=== PATIENT | male | born 1935 | race Caucasian/White ===

== ENCOUNTER 2016-10-23 07:48 | Observation (INO) | payer OTHER, BC ==
[~2016-10-23] VITALS: Ht 157.5 cm; Wt 56.0 kg
[2016-10-23] VITALS (8 sets, daily range): BP systolic 104–146; BP diastolic 54–65
[2016-10-23] MEDS ORDERED: METOPROLOL SUC100 MG PO (08:09)
[2016-10-23] MEDS ORDERED: TAMSULOSIN HCL0.4 MG PO (08:09)
[2016-10-23] MEDS ORDERED: METHYLPHENIDATE5 MG PO (08:09)
[2016-10-23] MEDS ORDERED: CREON DR 12,001 EAC1 PO (08:10)
[2016-10-23 09:38] LABS: HEMATOCRIT 40.5 % (38.0-50.0); MCH 28.6 PG (29.0-34.0); MCHC 32.6 G/DL (30.0-36.0); MCV 87.9 FL (86-99); MEAN PLAT.VOLUME 12.8 uM^3 (9.0-12.4); PLATELET COUNT 116 K/uL (156-360); RBC DIS.WIDTH-SD 48.2 % (39-53); RED BLOOD COUNT 4.61 M/uL (4.00-5.50); WHITE BLOOD COUNT 6.3 K/uL (4.1-10.2)
[2016-10-23 09:46] LABS: CHLORIDE 106 mEq/L (99-109); POTASSIUM 4.7 mEq/L (3.7-5.4); SODIUM 141 mEq/L (136-147)
[2016-10-23 09:48] LABS: GLUCOSE 136 mg/dL (70-99)
[2016-10-23 09:49] LABS: ANION GAP 10 MEQ/L (2-14)
[2016-10-23 09:52] LABS: GFR ESTIMATE (CALCULATED) 57 mL/min/
[2016-10-23 09:53] LABS: UREA NITROGEN (BUN) 30 mg/dL (9-23)
[2016-10-23 10:02] LABS: TROP-I INTERPRETATION NEGATIVE; TROPONIN-I < 0.01 ng/mL (0.0-0.30)
[2016-10-23] MEDS ORDERED: PATADAY2.5 ML BOTH EYES (10:30)
[2016-10-23] MEDS ORDERED: ADVIL200 MG PO (10:30)
[2016-10-23] MEDS ORDERED: CENTRUM SILVER1 EAC3 PO (10:31)
[2016-10-23 11:42] LABS: INFLUENZA A VIRAL ANTIGEN POSITIVE; INFLUENZA B VIRAL ANTIGEN NEGATIVE
[2016-10-23 12:10] LABS: ADD MIUA? YES; BILIRUBIN NEGATIVE; BLOOD SMALL; COLOR YELLOW ((YELLOW)); GLUCOSE (STRIP) NEGATIVE; KETONES NEGATIVE; LEUKOCYTES NEGATIVE; NITRITE NEGATIVE; PROTEIN (STRIP) NEGATIVE; SPECIFIC GRAVITY 1.017 (1.000-1.030); UROBILINOGEN 0.2 MG/DL (0.2-1.0)
[2016-10-23 13:04] LABS: BACTERIA NONE SEEN /HPF; EPITHELIAL CELLS RARE /HPF; MUCUS TRACE /LPF; RED BLOOD CELLS 15-20 /HPF (0-5); UCUL ADDED? NO
[2016-10-23 13:45] LABS: POINT-OF-CARE METER ID UU14162513
[2016-10-23 14:34] LABS: C DIFF TOXIN ND (NEGATIVE)
[2016-10-23 18:17] LABS: C DIFF TOXIN ND (NEGATIVE)
[2016-10-23 18:27] LABS: POINT-OF-CARE METER ID UU14162513
[2016-10-23 19:08] LABS: HEMATOCRIT 35.6 % (38.0-50.0); MCV 89.4 FL (86-99)
[2016-10-23 22:18] LABS: POINT-OF-CARE METER ID UU14162513
[2016-10-24 00:33] VITALS: BP 98/50
[2016-10-24 07:01] LABS: ANION GAP 7 MEQ/L (2-14); CHLORIDE 105 MEQ/L (99-109); GFR ESTIMATE (CALCULATED) > 59 mL/min/; POTASSIUM 3.9 MEQ/L (3.7-5.4); SAMPLE HEMOLYSIS CHECK 0; SAMPLE ICTERIC CHECK 0; SAMPLE LIPEMIA CHECK 0; SODIUM 138 MEQ/L (136-147); UREA NITROGEN (BUN) 18 mg/dL (9-23)
[2016-10-24 07:08] LABS: GLUCOSE 99 mg/dL (70-99)
[2016-10-24 07:38] LABS: MCH 27.8 PG (29.0-34.0); MCHC 31.1 G/DL (30.0-36.0); MCV 89.6 FL (86-99); MEAN PLAT.VOLUME 13.4 uM^3 (9.0-12.4); PLATELET COUNT 143 K/uL (156-360); RBC DIS.WIDTH-CV 15.1 % (11.8-14.6); RBC DIS.WIDTH-SD 49.6 % (39-53); RED BLOOD COUNT 4.13 M/uL (4.00-5.50); WHITE BLOOD COUNT 5.6 K/uL (4.1-10.2)
[2016-10-24 08:17] LABS: POINT-OF-CARE METER ID UU13113700
[2016-10-24] MEDS ORDERED: OSELTAMIVIR PHO30 MG PO (08:40)
[2016-10-24] MEDS ORDERED: PROTONIX40 MG PO ×2 (08:40→08:51)
== END 2016-10-24 09:56 | disposition home or self-care (01) ==
LOC: EME 07:48 → EDOF 10:03 → 5WEST 10:03 → EDOF 10:03 → 5WEST 11:04
PROVIDERS: Emergency Medicine; Hospitalist
DX: K92.1 Melena (principal); R19.7 Diarrhea, unspecified; R10.13 Epigastric pain; I10 Essential (primary) hypertension; E11.9 Type 2 diabetes mellitus without complications; K21.9 Gastro-esophageal reflux disease without esophagitis; I25.10 Atherosclerotic heart disease of native coronary artery without angina pectoris; I25.2 Old myocardial infarction; F17.200 Nicotine dependence, unspecified, uncomplicated
CPT/HCPCS: 80048; 81003; 82272; 82948; 84484; 85014; 85018; 85027; 86850; 86900; 86901; 87493; 87502; 93005; 99281; 99285; C9113; G0378; J1815; J7030

== ENCOUNTER 2016-11-28 08:59 | Inpatient (IN) | payer OTHER, BC ==
[~2016-11-28] VITALS: Ht 157.5 cm; Wt 59.0 kg
[~2016-11-28 08:59] MED LIST: ADVIL200 MG PO; CENTRUM SILVER1 EAC3 PO; CREON DR 12,001 EAC1 PO; METHYLPHENIDATE5 MG PO; METOPROLOL SUC100 MG PO; OSELTAMIVIR PHO30 MG PO; PATADAY2.5 ML BOTH EYES; PROTONIX40 MG PO; TAMSULOSIN HCL0.4 MG PO
[2016-11-28 09:36] LABS: BASOPHIL COUNT 0.1 K/uL (0-0.1); EOSINOPHIL (%) 0.1 % (0-5); HEMATOCRIT 43.2 % (38.0-50.0); IMMATURE GRANULOCYTE (%) 0.5 % (0.0-0.7); IMMATURE GRANULOCYTE COUNT 0.1 K/uL; LYMPHOCYTE COUNT 2.1 K/uL (1.0-2.8); MCHC 31.7 G/DL (30.0-36.0); MCV 88.3 FL (86-99); MEAN PLAT.VOLUME 13.2 uM^3 (9.0-12.4); MONOCYTE (%) 4.6 % (3-12); MONOCYTE COUNT 0.7 K/uL (0-0.8); NEUTROPHIL (%) 80.6 % (45-76); PLATELET COUNT 202 K/uL (156-360); RBC DIS.WIDTH-CV 13.8 % (11.8-14.6); RBC DIS.WIDTH-SD 44.8 % (39-53); RED BLOOD COUNT 4.89 M/uL (4.00-5.50); WHITE BLOOD COUNT 14.9 K/uL (4.1-10.2)
[2016-11-28 09:47] LABS: CHLORIDE 100 mEq/L (99-109); POTASSIUM 4.3 mEq/L (3.7-5.4); SODIUM 135 mEq/L (136-147)
[2016-11-28 09:49] LABS: GLUCOSE 146 mg/dL (70-99)
[2016-11-28 09:50] LABS: ANION GAP 11 MEQ/L (2-14)
[2016-11-28 09:51] LABS: TOTAL BILIRUBIN 0.7 mg/dL (0.0-1.0)
[2016-11-28 09:53] LABS: ALKALINE PHOSPHATASE 53 IU/L (3-129); GFR ESTIMATE (CALCULATED) > 59 mL/min/
[2016-11-28 09:54] LABS: UREA NITROGEN (BUN) 14 mg/dL (9-23)
[2016-11-28 09:56] LABS: LIPASE 90 U/L (1.0-51.0)
[2016-11-28 09:58] LABS: TROP-I INTERPRETATION NEGATIVE; TROPONIN-I < 0.01 ng/mL (0.0-0.30)
[2016-11-28 13:06] LABS: INTER. NORMALIZED RATIO 1.1; PROTHROMBIN TIME 11.4 (9.2-11.2)
[2016-11-28] MEDS ORDERED: PROTONIX40 MG PO (13:16)
[2016-11-28] MEDS ORDERED: BENICAR20 MG PO (13:19)
[2016-11-28] MEDS ORDERED: SYNTHROID75 MCG PO (13:19)
[2016-11-28] MEDS ORDERED: TRADJENTA5 MG PO (13:20)
[2016-11-28] MEDS ORDERED: CREON DR 12,001 EAC1 PO (13:20)
[2016-11-28 14:11] LABS: MAGNESIUM 1.6 mg/dl (1.3-2.7)
[2016-11-28 14:16] LABS: HDL CHOLESTEROL 41 MG/DL (Desirable>=40); LDL CHOLESTEROL 94 mg/dL (Desirable<100); NON-HDL CHOLESTEROL 110 mg/dL (Desirable<160); TOTAL CHOLESTEROL 151 mg/dL (Desirable<200); TRIGLYCERIDES 79 MG/DL (Normal: <150)
[2016-11-28 16:43] LABS: TROP-I INTERPRETATION NEGATIVE; TROPONIN-I < 0.01 ng/mL (0.0-0.30)
[2016-11-28 17:55] VITALS: BP 94/53
[2016-11-28 20:02] VITALS: BP 91/52
[2016-11-28 21:08] LABS: POINT-OF-CARE METER ID UU13113781
[2016-11-28 22:12] LABS: TROP-I INTERPRETATION NEGATIVE; TROPONIN-I < 0.01 ng/mL (0.0-0.30)
[2016-11-29 00:41] VITALS: BP 89/51
[2016-11-29 05:01] VITALS: BP 88/53
[2016-11-29 06:26] LABS: ALKALINE PHOSPHATASE 35 IU/L (3-129); ANION GAP 7 MEQ/L (2-14); CHLORIDE 106 MEQ/L (99-109); GFR ESTIMATE (CALCULATED) > 59 mL/min/; GLUCOSE 76 mg/dL (70-99); MCH 27.7 PG (29.0-34.0); MCHC 31.4 G/DL (30.0-36.0); MCV 88.2 FL (86-99); MEAN PLAT.VOLUME 13.1 uM^3 (9.0-12.4); PLATELET COUNT 183 K/uL (156-360); RBC DIS.WIDTH-SD 45.3 % (39-53); RED BLOOD COUNT 4.08 M/uL (4.00-5.50); SAMPLE HEMOLYSIS CHECK 0; SAMPLE ICTERIC CHECK 0; SAMPLE LIPEMIA CHECK 0; SODIUM 136 MEQ/L (136-147); TOTAL BILIRUBIN 0.5 MG/DL (0.0-1.0); UREA NITROGEN (BUN) 16 mg/dL (9-23); WHITE BLOOD COUNT 13.6 K/uL (4.1-10.2)
[2016-11-29 06:28] LABS: TROP-I INTERPRETATION NEGATIVE; TROPONIN-I < 0.01 ng/mL (0.0-0.30)
[2016-11-29 07:15] VITALS: BP 100/55
[2016-11-29 11:53] VITALS: BP 88/49
[2016-11-29 11:54] LABS: TROP-I INTERPRETATION NEGATIVE; TROPONIN-I 0.01 ng/mL (0.0-0.30)
[2016-11-29 16:40] LABS: POINT-OF-CARE METER ID UU14174216
[2016-11-29 16:46] VITALS: BP 90/48
[2016-11-29 20:06] VITALS: BP 108/54
[2016-11-29 21:10] LABS: POINT-OF-CARE METER ID UU14174216
[2016-11-30] VITALS (7 sets, daily range): BP systolic 98–112; BP diastolic 50–64
[2016-11-30 01:53] LABS: HEMATOCRIT 32.5 % (38.0-50.0); MCV 87.6 FL (86-99); MEAN PLAT.VOLUME 12.3 uM^3 (9.0-12.4); PLATELET COUNT 180 K/uL (156-360); RBC DIS.WIDTH-SD 45.1 % (39-53); RED BLOOD COUNT 3.71 M/uL (4.00-5.50); WHITE BLOOD COUNT 10.9 K/uL (4.1-10.2)
[2016-11-30 02:18] LABS: CHLORIDE 109 mEq/L (99-109); POTASSIUM 3.9 mEq/L (3.7-5.4); SODIUM 137 mEq/L (136-147)
[2016-11-30 02:19] LABS: GLUCOSE 78 mg/dL (70-99)
[2016-11-30 02:21] LABS: ANION GAP 7 MEQ/L (2-14)
[2016-11-30 02:23] LABS: GFR ESTIMATE (CALCULATED) > 59 mL/min/
[2016-11-30 02:24] LABS: UREA NITROGEN (BUN) 13 mg/dL (9-23)
[2016-11-30 08:21] LABS: POINT-OF-CARE USER ID ENVKC36
[2016-11-30 12:51] LABS: POINT-OF-CARE METER ID UU13113694
[2016-11-30 13:29] LABS: POINT-OF-CARE METER ID UU13113819
[2016-12-01 03:50] VITALS: BP 105/56
[2016-12-01 08:07] LABS: POINT-OF-CARE USER ID ENVKC36
[2016-12-01 08:37] VITALS: BP 113/58
[2016-12-01 11:09] LABS: POINT-OF-CARE METER ID UU14174216
[2016-12-01] MEDS ORDERED: TOPROL XL100 MG PO (11:24)
[2016-12-01] MEDS ORDERED: TOPROL XL50 MG PO (11:24)
[2016-12-01] MEDS ORDERED: PROTONIX40 MG PO (11:26)
== END 2016-12-01 11:40 | disposition home or self-care (01) | DRG 379 ==
LOC: EME 08:59 → EDOF 12:29 → 4EAST 12:35 → EDOF 12:35 → 4EAST 17:40
PROVIDERS: Emergency Medicine; Internal Medicine; Physician Assistant; Student in an Organized Health Care Education/Training Program
PROC: 0DB68ZX Excision of Stomach, Via Natural or Artificial Opening Endoscopic, Diagnostic (ICD-10-PCS; principal; 2016-11-30)
DX: K25.4 Chronic or unspecified gastric ulcer with hemorrhage (principal); E11.42 Type 2 diabetes mellitus with diabetic polyneuropathy; I25.10 Atherosclerotic heart disease of native coronary artery without angina pectoris; I48.0 Paroxysmal atrial fibrillation; I10 Essential (primary) hypertension; F17.200 Nicotine dependence, unspecified, uncomplicated; K21.9 Gastro-esophageal reflux disease without esophagitis; E03.9 Hypothyroidism, unspecified; I95.9 Hypotension, unspecified; D64.9 Anemia, unspecified; K29.80 Duodenitis without bleeding; K29.70 Gastritis, unspecified, without bleeding
CPT/HCPCS: 71010; 74177; 80048; 80053; 80061; 82948; 83690; 83735; 84443; 84484; 85025; 85027; 85610; 85730; 88305; 88342 TC; 93005; 93306; 99281; 99285; J1815; J2270; J2405; J3010; J7030; J7050